=== PATIENT | female | born 1945 | race Caucasian/White ===

== ENCOUNTER 2017-06-03 13:34 | Emergency (ER) | payer MEDICARE, OTHER ==
[2017-06-03 13:52] VITALS: BP 183/104
--- NOTE | 2017-06-03 14:54 | XRAY Preliminary Report ---
Exam: XR KNEE 4 VIEW LT IMPRESSION: Soft tissue swelling anteriorly without underlying fracture or dislocation. [facility] SITE ID: [id number]
--- NOTE | 2017-06-03 14:57 | XRAY Report ---
EXAM: LEFT KNEE RADIOGRAPHY EXAM DATE: 06/03/2017 02:09 PM. CLINICAL HISTORY: Fall/pain . COMPARISON: None. TECHNIQUE: 4 views. FINDINGS: Bones: Normal. No fractures or bone lesions. Joints: Normal. No effusion. No subluxations. Soft Tissues: Soft tissue swelling anteriorly at the knee. IMPRESSION: Soft tissue swelling anteriorly without underlying fracture or dislocation. [facility] Referring Provider Line: [phone] SITE ID: [id number]
--- NOTE | 2017-06-03 14:57 | XRAY Preliminary Report ---
Exam: XR WRIST 4 VIEW RT IMPRESSION: No acute fracture or dislocation. [facility] SITE ID: [id number]
--- NOTE | 2017-06-03 14:59 | XRAY Report ---
EXAM: RIGHT WRIST RADIOGRAPHY EXAM DATE: 06/03/2017 02:09 PM. CLINICAL HISTORY: Fall/pain . COMPARISON: None. TECHNIQUE: 3 views. FINDINGS: Bones: No acute fracture or dislocation. Chronic appearing deformity of the fifth metacarpal, possibl y from remote prior injury. Joints: Degenerative changes at the basal joint of the thumb. Soft Tissues: Normal. No soft tissue swelling. IMPRESSION: No acute fracture or dislocation. [facility] Referring Provider Line: [phone] SITE ID: [id number]
--- NOTE | 2017-06-03 15:39 | ED Physician Documentation ---
History of Present Illness - Stated complaint Stated Complaint: RT WRIST PX - Chief complaint Chief Complaint: Ext Problem - History obtained from History obtained from: Patient (pt is here for evaluation of right wrist pain and left knee pain. she states that for the past several days she has had pain in her right wrist with movement. no trauma, no change in skin. she states that she works with her hands and is concerned about carpel tunnel) Review of Systems Constitutional: denies: Fever, Chills Cardiac: denies: Chest pain / pressure, Palpitations Respiratory: denies: Dyspnea, Cough GI: denies: Abdominal Pain, Nausea, Vomiting, Constipation, Diarrhea : denies: Dysuria Skin: denies: Rash, Lesions Musculoskeletal: reports: Extremity pain (right wrist, left knee), Joint pain ( right wrist), Extremity swelling (left knee), Joint swelling (left knee). denies: Neck pain, Back pain PD PAST MEDICAL HISTORY - Past Medical History Past Medical History: No - Past Surgical History Past Surgical History: Yes HEENT: Cataracts - Present Medications Home Medications: Ambulatory Orders Medication Instructions Recorded Confirmed No Known Home Medications [No 06/03/17 06/03/17 Known Home Medications] - Allergies Allergies/Adverse Reactions: Allergies Allergy/AdvReac Type Severity Reaction Status Date / Time Penicillins Allergy Unknown Verified 06/03/17 13:44 - Social History Does the pt smoke?: No Smoking Status: Never smoker Does the pt drink ETOH?: Yes Does the pt have substance abuse?: Yes Substance Use and Type: Marijuana - Immunizations Immunizations are current?: No PD ED PE NORMAL - Vitals Vital signs reviewed: Yes - General General: Alert and oriented X 3, No acute distress, Well developed/nourished - HEENT HEENT: Atraumatic, Moist mucous membranes - Cardiac Cardiac: RRR, No murmur, Strong equal pulses (radial ) - Respiratory Respiratory: No respiratory distress - Derm Derm: Normal color, Warm and dry, No rash - Extremities Extremities: No deformity, Other (pt with left knee pre=patella effusion, pt with TTP over the palmar aspect of the right thumb, no snuff box tendernss neg tinel's sign, ) - Neuro Neuro: Alert and oriented X 3, Other (sensation intact to light touch to right UE) - Psych Psych: Normal mood, Normal affect Results - Vitals Vitals: Vital Signs - 24 hr 06/03/17 13:39 Temperature 36.5 C Heart Rate 84 Respiratory 18 Rate Blood Pressure 183/104 H O2 Saturation 100 Oxygen O2 Source Room air - Rads (name of study) right wrist Radiology: Final report received left knee Radiology: Final report received PD MEDICAL DECISION MAKING - ED course Complexity details: d/w patient ED course: pt is N/V intact in the right upper and left lower extremity. No cute findings on the x-rays. pt has a wrist brace suspect tendonitis of the wrist and left knee effusion from the fall. no need for casting. BARTOLO discussed with pt. Departure - Departure Disposition: 01 Home, Self Care Clinical Impression: Right wrist tendonitis, Effusion, left knee Condition: Good Instructions: Wrist Pronation Strength, ED BARTOLO Follow-Up: Abdi Hagen MD [Primary Care Provider] - Comments: use the wrist brace like we discussed. You can take the Motrin like we discussed. Return to the ER for any new or worsening symptoms.
== END 2017-06-03 15:50 | disposition home or self-care (01) ==
LOC: ED 13:34
DX: M77.9 Enthesopathy, unspecified (principal); M25.462 Effusion, left knee
CPT/HCPCS: 99283

== ENCOUNTER 2020-02-28 08:22 | Outpatient (CLI) | payer OTHER, MEDICARE ==
--- NOTE | 2020-03-01 09:44 | MRI Report ---
PROCEDURE: Shoulder RT W/O INDICATIONS: RT ROTATOR CUFF TEAR TECHNIQUE: Noncontrast oblique coronal T2 fast spin echo with fat saturation, oblique sagittal T1 spin echo and T2 fast spin echo with fat saturation, axial T1 spin echo and T2 fast spin echo with fat saturation t hrough the shoulder. COMPARISON: Right shoulder radiographs dated 06/24/2019. FINDINGS: Image quality: Mildly compromised by patient motion on multiple sequences despite repeat sequences be ing obtained. Diagnostic information is obtained. Rotator cuff: There is full-thickness tearing of the supraspinatus tendon and the anterior fibers of the infraspinatus tendon from their distal insertions measuring approximately 1.8 cm in anterior pos terior dimension with approximately 3.6 cm of proximal tendon retraction. There is mild atrophy and g rade 2 fatty infiltration of the supraspinatus and infraspinatus muscles. The teres minor tendon is i ntact. The subscapularis tendon demonstrates moderate tendinosis and moderate grade intrasubstance te aring at the distal insertion. There is grade 2 fatty infiltration of the superior subscapularis musc le. Bones and bursae: Mild chronic traction cystic changes are seen at the posterior superior humeral hea d. High-grade cartilage loss is seen in the central to inferior glenoid with mild spurring of the gle noid rim. There is mild acromioclavicular joint osteoarthrosis. Capsule and soft tissues: There is a large glenohumeral joint effusion communicates with the subacro mial/subdeltoid bursa with marked synovial hypertrophy. Numerous hypointense intra-articular bodies a re most likely rice bodies associated with chronic synovitis rather than chondromatosis. There is diffuse degeneration of the glenoid labrum. There is complete tearing of the biceps long head tendon with distal retraction to the level of the d istal bicipital groove. Axillary and supraclavicular lymph nodes are increased in size and number. The largest measures up to 14 mm in short axis diameter. IMPRESSION: 1. Full-thickness tearing of the supraspinatus tendon and the anterior portion of the infraspinatus tendon at their distal insertions with proximal tendon retraction measuring approximately 3.6 cm. The re is mild atrophy and grade 2 fatty infiltration of the supraspinatus and infraspinatus muscles. 2. Moderate subscapularis tendinosis with superimposed moderate-grade intrasubstance tearing at the superior insertion. There is grade 2 fatty infiltration of the subscapularis muscle. 3. Complete tearing and distal retraction of the biceps long head tendon. 4. Circumferential labral degeneration. 5. Large glenohumeral effusion communicates with the subacromial/subdeltoid bursa with synovial hype rtrophy. Numerous intra-articular bodies most likely represent rice bodies related to chronic synovit is rather than primary chondromatosis. Possible causes of synovial hypertrophy include osteoarthrosis as well as chronic inflammatory processes such as rheumatoid arthritis or a chronic indolent infecti on such as with tuberculosis or coccidiomycosis. Correlation with clinical findings and serologies is recommended. 6. Right axillary and supraclavicular lymph nodes are increased in size and number measuring up to 1 4 mm in short axis diameter. These are nonspecific, and the differential includes reactive and metast atic lymphadenopathy. Correlation with most recent mammogram is recommended to exclude a breast malig lolly as a cause for adenopathy. Reviewed by: Carson Lopez MD on 03/01/2020 9:43 AM PDT Approved by: Carson Lopez MD on 03/01/2020 9:43 AM PDT Station ID: [id number]
== END 2020-02-28 08:23 | disposition home or self-care (01) ==
LOC: DI 08:22
PROVIDERS: ATTEND Orthopaedic Surgery
DX: M75.101 Unspecified rotator cuff tear or rupture of right shoulder, not specified as traumatic (principal); M62.511 Muscle wasting and atrophy, not elsewhere classified, right shoulder; S46.111A Strain of muscle, fascia and tendon of long head of biceps, right arm, initial encounter; M75.81 Other shoulder lesions, right shoulder; M25.411 Effusion, right shoulder; R59.0 Localized enlarged lymph nodes

== ENCOUNTER 2020-05-07 11:12 | Outpatient (CLI) | payer MEDICARE, OTHER ==
--- NOTE | 2020-05-10 16:38 | Mammography Report ---
BILATERAL DIGITAL DIAGNOSTIC MAMMOGRAM 3D/2D: 05/07/2020 CLINICAL: Patient returns for additional imaging over a suspected mass in the right breast. Comparison is made to exam dated: 02/28/2020 breast MRI - [facility]. The tissue o f both breasts is heterogeneously dense. This may lower the sensitivity of mammography. There are multiple oval equal density lymph nodes with circumscribed margins in the right axillary ta il. No other significant masses, calcifications, or other findings are seen in either breast. IMPRESSION: INCOMPLETE: NEEDS ADDITIONAL IMAGING EVALUATION The multiple oval equal density lymph nodes are indeterminate. An ultrasound is recommended. This exam was interpreted at Station ID: [id number]. NOTE: For mammograms, a report in lay terms will be sent to the patient. Approximately 15% of breast malignancies will not be visualized mammographically. In the management of a palpable breast mass, a negative mammogram must not discourage biopsy of a clinically suspicious lesion. Electronically Signed By: Xavier Armando M.D. ddp/:05/07/2020 17:37:32 ACR BI-RADS Category 0: Incomplete 3340F PARENCHYMAL PATTERN: (D) - The breast(s) demonstrate(s) heterogeneously dense fibroglandular parenchy ma. BI-RADS CATEGORY: (0) - 0 Ultrasound [id number] Immediate follow-up LATERALITY: (B)
--- NOTE | 2020-05-10 16:38 | Ultrasound Report ---
LIMITED ULTRASOUND OF RIGHT BREAST: 05/07/2020 CLINICAL: Right axilla enlarged lymph node. Comparison is made to exams dated: 05/07/2020 mammogram and 02/28/2020 breast MRI - [facility]. Color flow and real-time ultrasound of the right breast were performed on the areas of interest. There is a 1.9 cm x 1.2 cm x 1.8 cm lymph node in the right axilla. This lymph node is hypoechoic wi th effacement of the fatty hilum. This correlates with prior shoulder MRI findings. Color flow imag ing demonstrates that there is increased vascularity. Another similar enlarged axillary lymph node m easures up to 1.8 x 0.7 x 1.6 cm. IMPRESSION: SUSPICIOUS OF MALIGNANCY The 1.9 cm x 1.2 cm x 1.8 cm lymph node is suspicious of malignancy. An ultrasound guided biopsy is recommended. The findings were discussed with and the results were reviewed with the patient at the conclusion of the study by Dr. Parker. This exam was interpreted at Station ID: [id number]. Electronically Signed By: Xavier Armando M.D. ddp/:05/07/2020 15:02:43 Ultrasound BI-RADS: 4 Suspicious for malignancy BI-RADS CATEGORY: (4) - 4 None [id number] Immediate follow-up LATERALITY: ()
== END 2020-05-07 11:13 | disposition home or self-care (01) ==
LOC: DI 11:12
PROVIDERS: ATTEND Nurse Practitioner
DX: R59.0 Localized enlarged lymph nodes (principal)
CPT/HCPCS: 76642; 77066

== ENCOUNTER 2020-06-04 11:09 | Outpatient (CLI) | payer MEDICARE, OTHER ==
[~2020-06-04 11:09] MED LIST: BUFFERED LIDOCAINE 10 ML SYRINGE ONE
[2020-06-04] MEDS ORDERED: BUFFERED LIDOCAINE 10 ML SYRINGE ONE (11:21)
[2020-06-04] MEDS ORDERED: BUFFERED LIDOCAINE 10 ML SYRINGE IU ONE (13:21)
--- NOTE | 2020-06-07 08:29 | Mammography Report ---
UNILATERAL RIGHT DIGITAL DIAGNOSTIC MAMMOGRAM 3D/2D: 06/04/2020 CLINICAL: Right axillary node biopsy. Comparison is made to exam dated: 06/04/2020 ultrasound biopsy - [facility]. The tissue of right breast is heterogeneously dense. This may lower the sensitivity of mammography. There is a marker clip in the appropriate position in the right breast posterior depth superior regio n seen on the mediolateral oblique view only. This marker clip placement is at the biopsy site. IMPRESSION: POST PROCEDURE MAMMOGRAM FOR MARKER PLACEMENT There was a successful marker clip placement in the right breast posterior depth superior region seen on the mediolateral oblique view only. This exam was interpreted at Station ID: [id number]. NOTE: For mammograms, a report in lay terms will be sent to the patient. Approximately 15% of breast malignancies will not be visualized mammographically. In the management of a palpable breast mass, a negative mammogram must not discourage biopsy of a clinically suspicious lesion. Electronically Signed By: Javier capps/penrad:06/07/2020 08:24:32 ACR BI-RADS Category Post-procedure mammogram for marker placement PARENCHYMAL PATTERN: (D) - The breast(s) demonstrate(s) heterogeneously dense fibroglandular hazel cooley. BI-RADS CATEGORY: () - RECOMMENDATION: (ADDMAM) - Recommend additional mammographic views. recall n/a LATERALITY: (B)
--- NOTE | 2020-06-10 07:25 | Ultrasound Report ---
ULTRASOUND GUIDED BIOPSY RIGHT BREAST USING VACUUM DEVICE WITH MARKING DEVICE INSERTED AND POST DIGIT AL MAMMOGRAPHIC IMAGIN06/04/2020 CLINICAL: Right axillary node biopsy. PATIENT CONSENT: Risks (minor bleeding, infection, vasovagal reaction and repeat procedure), benefits and alternatives were explained to the patient and written informed consent was obtained. Correlation is made to exams dated: 05/07/2020 ultrasound, 02/28/2020 breast MRI, and 05/07/2020 mamm ogram - [facility]. An ultrasound guided biopsy using real-time ultrasound was performed for the 1.7 cm solid mass locate d in the right axillary tail. The skin was prepped in the usual manner. The abnormality was approac hed from the lateral aspect. A biopsy needle was placed adjacent to the abnormality under ultrasound guidance. Once the needle was documented to be in the correct location, four specimens were obtaine d using the Mammotome biopsy system. A clip was inserted into the biopsy cavity. Post procedure dig ital mammographic imaging was obtained. The specimens were sent to the laboratory for pathological a nalysis. IMPRESSION: ULTRASOUND GUIDED BIOPSY BENIGN Ultrasound guided biopsy of the 1.7 cm solid mass in the right axillary tail was successful with no a pparent post procedure complications. Pathology indicates benign reactive lymph node. Pathology res ults are concordant with imaging findings. Return to annual mammogram screening schedule is recommended. This exam was interpreted at Station ID: [id number]. Javier capps,aty/:06/09/2020 17:49:37 BI-RADS CATEGORY: () - RECOMMENDATION: (ANNUAL) - Recommend routine annual screening mammography. [id number] return to screening LATERALITY: (B)
== END 2020-06-04 11:10 | disposition home or self-care (01) ==
LOC: DI 11:09
PROVIDERS: ATTEND Nurse Practitioner
DX: R59.0 Localized enlarged lymph nodes (principal)
CPT/HCPCS: 19083

== ENCOUNTER 2021-01-26 14:17 | Outpatient (CLI) | payer MEDICARE, OTHER ==
--- NOTE | 2021-01-26 15:10 | XRAY Report ---
PROCEDURE: Hand 3 View BILAT INDICATIONS: ARTHRITIS, BILATERAL HANDS TECHNIQUE: 3 views of the bilateral hand(s) acquired. COMPARISON: None FINDINGS: Bones: No fractures or dislocations. No suspicious bony lesions. There is a moderate degree of deg enerative osteoarthritic change at the distal inner phalangeal joints, without inflammatory/erosive a rthritis identified. The most prominent degree of degenerative changes seen at the distal second inte rphalangeal joint bilaterally. Soft tissues: No suspicious soft tissue calcifications. 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 Reviewed by: Elfego Parker MD on 01/26/2021 3:09 PM PDT Approved by: Elfego Parker MD on 01/26/2021 3:09 PM PDT Station ID: [id number]
== END 2021-01-26 14:18 | disposition home or self-care (01) ==
LOC: DI.N 14:17
PROVIDERS: ATTEND Family Medicine
DX: M19.042 Primary osteoarthritis, left hand (principal); M19.041 Primary osteoarthritis, right hand

== ENCOUNTER 2021-01-30 12:57 | Emergency (ER) | payer MEDICARE, OTHER ==
[2021-01-30 13:46] LABS: BASOPHILS # (AUTO) 0.1 10^3/uL (0.0-0.1); BASOPHILS % (AUTO) 0.4 %; EOSINOPHILS % (AUTO) 0.1 %; HCT - HEMATOCRIT 40.4 % (37.0-47.0); HGB - HEMOGLOBIN 12.8 g/dL (12.0-16.0); LYMPHOCYTES % (AUTO) 7.3 %; MEAN CORPUSCULAR HEMOGLOBIN 29.2 pg (27.0-31.0); MEAN CORPUSCULAR HGB CONC 31.7 g/dL (32.0-36.0); MEAN PLATELET VOLUME 9.7 fL (7.9-10.8); MONOCYTES % (AUTO) 7.1 %; NEUTROPHILS # (AUTO) 11.6 10^3/uL (1.5-6.6); NEUTROPHILS % (AUTO) 84.4 %; PLT - PLATELET COUNT 252 10^3/uL (130-450); RED BLOOD COUNT 4.39 10^6/uL (4.20-5.40); WHITE BLOOD COUNT 13.8 x10^3/uL (4.8-10.8)
[2021-01-30 13:58] LABS: ALBUMIN 3.7 g/dL (3.2-5.5); ALBUMIN/GLOBULIN RATIO 0.9 (1.0-2.2); BILIRUBIN,TOTAL 0.9 mg/dL (0.2-1.0); CALCIUM 9.1 mg/dL (8.5-10.3); CREATININE 0.8 mg/dL (0.4-1.0); POTASSIUM 3.6 mmol/L (3.5-5.0); TOTAL PROTEIN 7.9 g/dL (6.7-8.2)
[2021-01-30] MEDS ORDERED: ONDANSETRON 4 MG/2 ML VIAL IVP STA (14:07)
[2021-01-30] MEDS ORDERED: HYDROmorphone 1 MG/ML CARPUJECT IVP STA (14:07)
--- NOTE | 2021-01-30 14:10 | ED Physician Documentation ---
History of Present Illness - Stated complaint Stated Complaint: LT SIDE PX - Chief complaint Chief Complaint: Abd Pain - History obtained from History obtained from: Patient - History of Present Illness Timing: How many days ago (2) Pain level max: 10 Pain level now: 10 - Additonal information Additional information: Patient is a 75-year-old female who states that she developed left upper quadrant pain yesterday and has continually worsened. States now she cannot lay down. No fevers. No chills. She states that she normally drinks alcohol 2 glasses of wine per night and uses marijuana several times a day, mostly CBD capsules. No vomiting. No diarrhea. No constipation. Worse with any sort of movement and eating. Nothing makes it better Review of Systems Ten Systems: 10 systems reviewed and negative Constitutional: denies: Fever, Chills Respiratory: denies: Cough GI: denies: Vomiting, Diarrhea Skin: denies: Rash Musculoskeletal: denies: Neck pain, Back pain Neurologic: denies: Headache PD PAST MEDICAL HISTORY - Past Medical History Past Medical History: Yes Musculoskeletal: Other ("arthritis") - Past Surgical History Past Surgical History: Yes HEENT: Cataracts - Present Medications Home Medications: Ambulatory Orders Medication Instructions Recorded Confirmed Azithromycin [Zithromax] 250 mg PO DAILY #4 tablet 01/30/21 Cefdinir 300 mg PO BID #20 cap 01/30/21 Ondansetron Odt [Zofran] 4 mg TL Q6H PRN #10 tablet 01/30/21 Oxycodone HCl/Acetaminophen 1 - 2 each PO Q6H PRN #14 tablet 01/30/21 [Percocet 5-325 mg Tablet] - Allergies Allergies/Adverse Reactions: Allergies Allergy/AdvReac Type Severity Reaction Status Date / Time Penicillins Allergy Unknown Verified 01/30/21 13:18 - Social History Does the pt smoke?: No Smoking Status: Never smoker Does the pt drink ETOH?: Yes Does the pt have substance abuse?: Yes - Immunizations Immunizations are current?: No PD ED PE NORMAL - Vitals Vital signs reviewed: Yes - General General: Alert and oriented X 3, No acute distress - HEENT HEENT: Moist mucous membranes - Neck Neck: Supple, no meningeal sign - Cardiac Cardiac: RRR - Respiratory Respiratory: No respiratory distress, Clear bilaterally - Abdomen Abdomen: Other (Diffusely tender to palpation. Peritoneal signs present in the upper abdomen, especially left upper quadrant.) - Back Back: No CVA TTP, No spinal TTP - Derm Derm: Warm and dry - Extremities Extremities: No edema, No calf tenderness / cord - Neuro Neuro: Alert and oriented X 3 Results - Vitals Vitals: Vital Signs - 24 hr 01/30/21 01/30/21 13:15 15:18 Temperature 36.9 C Heart Rate 108 H 107 H Respiratory 18 19 Rate Blood Pressure 170/87 H 160/92 H O2 Saturation 97 95 Oxygen O2 Source Room air - Labs Labs: Laboratory Tests 01/30/21 01/30/21 01/30/21 13:40 13:40 15:24 WBC 13.8 H RBC 4.39 Hgb 12.8 Hct 40.4 MCV 92.0 MCH 29.2 MCHC 31.7 L RDW 13.0 Plt Count 252 MPV 9.7 Neut # (Auto) 11.6 H Lymph # (Auto) 1.0 L [place] # (Auto) 1.0 Eos # (Auto) 0.0 Baso # (Auto) 0.1 Absolute Nucleated RBC 0.00 Nucleated RBC % 0.0 Sodium 138 Potassium 3.6 Chloride 102 Carbon Dioxide 25 Anion Gap 11.0 BUN 16 Creatinine 0.8 Estimated GFR (MDRD) 70 L Glucose 105 H Calcium 9.1 Total Bilirubin 0.9 AST 90 H ALT 112 H Alkaline Phosphatase 136 H Total Protein 7.9 Albumin 3.7 Globulin 4.2 Albumin/Globulin Ratio 0.9 L Lipase 20 L Urine Color DARK YELLOW Urine Clarity HAZY Urine pH 5.5 Ur Specific [place] 1.020 Urine Protein 30 H Urine Glucose (UA) NEGATIVE Urine Ketones 40 H Urine Occult Blood SMALL H Urine Nitrite NEGATIVE Urine Bilirubin NEGATIVE Urine Urobilinogen 1 (NORMAL) Ur Leukocyte Esterase NEGATIVE Urine RBC 0-5 Urine WBC 0-3 Ur Squamous Epith Cells FEW Squamous Urine Bacteria Few Ur Microscopic Review INDICATED Urine Culture Comments NOT INDICATED - Rads (name of study) abd/pelvis CT Radiology: Prelim report reviewed, EMP read contemporaneously, See rad report (Left lower lobe consolidation, appearance most consistent with infiltrate, infectious. Differential would include superimposed neoplasm in a patient of this age. Follow-up chest CT in approximately 6 weeks to assure clearing.) Chest x-ray Radiology: Prelim report reviewed, EMP read contemporaneously, See rad report (Focal opacity seen at the left lung base, which is attributed to pleural effusion with infiltrate. This is better seen on the CT study performed earlier in the day. Chest CT follow-up is recommended to ensure resolution. ) PD MEDICAL DECISION MAKING - ED course Complexity details: reviewed results, re-evaluated patient, considered differential, d/w patient ED course: 75-year-old female with left upper quadrant abdominal pain. Likely secondary to pleural effusion from pneumonia. Treated with antibiotics. Patient is well- appearing, nontoxic. Afebrile. No hypoxia or respiratory distress. Pain well controlled. Will place on pain medication for home as well. She will follow up with her doctor for repeat CT in approximately 6 weeks. Patient counseled regarding signs and symptoms for which I believe and urgent re-evaluation would be necessary. Patient with good understanding of and agreement to plan and is comfortable going home at this time This document was made in part using voice recognition software. While efforts are made to proofread this document, sound alike and grammatical errors may occur. Departure - Departure Disposition: Home, Self Care Clinical Impression: Pneumonia Qualifiers: Pneumonia type: due to unspecified organism Laterality: left Lung location: lower lobe of lung Qualified Code(s): J18.9 - Pneumonia, unspecified organism Condition: Good Instructions: ED Pneumonia Adult Follow-Up: Ronald Oseguera DO [Primary Care Provider] - Within 1 week Prescriptions: Cefdinir 300 mg PO BID #20 cap Oxycodone HCl/Acetaminophen [Percocet 5-325 mg Tablet] 1 - 2 each PO Q6H PRN #14 tablet PRN Reason: pain Azithromycin [Zithromax] 250 mg PO DAILY #4 tablet Ondansetron Odt [Zofran] 4 mg TL Q6H PRN #10 tablet PRN Reason: Nausea / Vomiting Comments: Take all antibiotics until gone. Follow-up with your doctor for further care. You will need a repeat CT scan of your chest once the infection has cleared. This can be ordered by your doctor. I am prescribing a short course of narcotic pain medication for you. These are potentially dangerous and addictive medications that should be used carefully. These medications may constipate you. Take an foai-jfq-eafxoeo stool softener (docusate) twice daily with plenty of water while taking these medications. If you go 24 hours without a bowel movement, take vscg-ene-isdeidi miralax, per package instructions. Do not drink or drive while taking these medications. If you received narcotic or sedating medications while in the emergency department, do not drive for 24 hours. Store this medication in a safe, secure place and out of reach of children. It is a violation of federal law to give or sell this medication to another person or to use in a manner other than prescribed. The ED will not refill narcotic prescriptions, including prescriptions lost or stolen. To dispose of unwanted medications: 1. [facility] at [address] in [place] has a medication drop box. They accept prescription medications (in pill form) Sunday through Sunday 9:00 a.m. to 5:00 p.m. 2. The [facility] [employer] accepts prescription medications (in pill form only) for disposal year round. Call for more information. 3. Contact the [facility] for the next [facility] sponsored prescription drug collection event. , [phone], or [phone];
[2021-01-30] MEDS ORDERED: IOPAMIDOL-300 100 ML VIAL ONE (14:13)
[2021-01-30] MEDS ORDERED: IOPAMIDOL-300 100 ML VIAL IVP ONE (14:49)
--- NOTE | 2021-01-30 15:06 | CT Report ---
PROCEDURE: Abdomen/Pelvis W INDICATIONS: LUQ abd pain CONTRAST: IV CONTRAST: Isovue 300 ml: 100 PO CONTRAST: *NO PO CONTRAST TECHNIQUE: After the administration of IV contrast, 5 mm thick sections acquired from the diaphragms to the symp hysis. 5 mm thick coronal and sagittal reformats were acquired. For radiation dose reduction, the f ollowing was used: automated exposure control, adjustment of mA and/or kV according to patient size. COMPARISON: None. FINDINGS: Image quality: Excellent. ABDOMEN: Lung bases: Consolidative change can be seen within the left lower lobe, with overlying enhancing ate lectasis Heart size is normal. Solid organs: Liver and spleen are normal in size and enhancement. Gallbladder wall does not appear thickened. Biliary system is non dilated. Pancreas enhances normally. No adrenal nodules. Kidn eys demonstrate normal size and enhancement, without hydronephrosis. Peritoneum and bowel: Bowel loops demonstrate normal wall thickness and caliber. No free fluid or a ir. Diverticulosis can be seen, without newton findings of active diverticulitis. A normal appendix i s incidentally noted. Nodes and vessels: No retroperitoneal or mesenteric adenopathy by size criteria. Aorta and inferior vena cava are normal in size. Miscellaneous: A mild fat-containing periumbilical hernia is seen. PELVIS: Genitourinary: Bladder wall thickness is normal. Miscellaneous: No inguinal hernias or adenopathy. Bones: No suspicious bony lesions. No vertebral body compression fractures. Age-appropriate degene rative changes are seen. IMPRESSION: Left lower lobe consolidation, which may be the cause of the patient's left upper quadra nt abdominal pain. The appearance is most consistent with infectious infiltrate. However, differentia l diagnosis would include superimposed neoplasm in a patient of this age. Please consider a follow-up chest CT in approximately 6 weeks to assure clearing. The spleen and the splenic flexure of the colon are unremarkable. No left kidney hydronephrosis is seen. Incidental note is made of: Fat-containing periumbilical hernia Diverticulosis, without active diverticulitis Reviewed by: Elver Flor MD on 01/30/2021 2:05 PM [facility] Approved by: Elver Flor MD on 01/30/2021 2:05 PM [facility] Station ID: [id number]
[2021-01-30 15:39] LABS: GLUCOSE, URINE (UA) NEGATIVE (NEGATIVE); KETONES,URINE (UA) 40 mg/dL (NEGATIVE); LEUKOCYTE ESTERASE, URINE NEGATIVE (NEGATIVE); NITRITE,URINE NEGATIVE (NEGATIVE); OCCULT BLOOD,URINE SMALL (NEGATIVE); PH,URINE 5.5 PH (5.0-7.5); PROTEIN,URINE 30 mg/dL (NEGATIVE); UROBILINOGEN,URINE 1 (NORMAL) E.U./dL (NORMAL)
[2021-01-30 15:50] LABS: BILIRUBIN,URINE NEGATIVE (NEGATIVE); CLARITY,URINE HAZY (CLEAR); ICTOTEST,URINE NEGATIVE
[2021-01-30 15:55] LABS: BACTERIA,URINE Few /HPF (None Seen); RBC,URINE 0-5 /HPF (0-5); SQUAMOUS EPITHELIAL CELL,UR FEW Squamous (<= Few); WBC,URINE 0-3 /HPF (0-5)
--- NOTE | 2021-01-30 16:09 | XRAY Report ---
PROCEDURE: Chest 2 View X-Ray INDICATIONS: LLL infiltrate on CT TECHNIQUE: 2 view(s) of the chest. COMPARISON: Correlation is made with the CT of the abdomen and pelvis, 02/01/2021. FINDINGS: Surgical changes and devices: None. Lungs and pleura: Low lung volumes can be seen, causing a crowded appearance to the lung markings. T here is blunting of the left costophrenic angle, with poorly defined opacity seen at the left lung ba se. Mediastinum: The aorta is prominent and tortuous. The cardiac contours are within normal limits. Bones and chest wall: No suspicious bony abnormalities. Age-appropriate degenerative changes are see n. Soft tissues appear unremarkable. Excreting contrast can be seen within the right kidney. IMPRESSION: Focal opacity seen at the left lung base, which is attributed to pleural effusion with i nfiltrate. This is better seen on the CT study performed earlier in the day. Chest CT follow-up is recommended to ensure resolution. Reviewed by: Elver Flor MD on 01/30/2021 3:08 PM [facility] Approved by: Elver Flor MD on 01/30/2021 3:08 PM [facility] Station ID: [id number]
[2021-01-30] MEDS ORDERED: cefTRIAXone 1 GM VIAL IVP STA (16:15)
[2021-01-30] MEDS ORDERED: AZITHROMYCIN 250 MG TABLET PO STA (16:16)
[2021-01-30] MEDS ORDERED: oxyCODONE 5 MG TABLET PO STA (16:18)
[2021-01-30 16:35] VITALS: BP 148/79
== END 2021-01-30 16:33 | disposition home or self-care (01) ==
LOC: ED 12:57
DX: J18.9 Pneumonia, unspecified organism (principal); J90 Pleural effusion, not elsewhere classified
CPT/HCPCS: 36415; 71046; 74177; 80053; 81001; 83690; 85025; 96374; 96375; 99284; A9270; J1170; Q9967; 81003; 87086

== ENCOUNTER 2021-04-21 11:52 | Outpatient (CLI) | payer MEDICARE ==
[2021-04-21] MEDS ORDERED: IOVERSOL 320 100 ML VIAL IVP ONE ×2 (12:13→20:18)
--- NOTE | 2021-04-21 15:00 | CT Report ---
PROCEDURE: CHEST W INDICATIONS: LLL INFILTRATE CONTRAST: IV CONTRAST: Optiray 320 ml: 100 PO CONTRAST: *NO PO CONTRAST TECHNIQUE: After the administration of intravenous contrast, 1 mm axial images were acquired from the pulmonary apices through the posterior costophrenic angles. Axial 5 mm soft tissue kernel reconstructions were performed as well as 8 mm axial MIP and coronal and sagittal 5 mm reformations. For radiation dose reduction, the following was used: automated exposure control, adjustment of mA and/or kV according to patient size. COMPARISON: None. FINDINGS: CT CHEST: Thyroid: Homogeneous. Vasculature: The thoracic aorta and arch vasculature have a normal contrasted appearance and are norm al size and contour. No evidence for dissection. Heart: No cardiomegaly or significant pericardial effusion. Mediastinum: No pathologic lymph node enlargement by size criteria. Lung/pleura: Small left pleural effusion with adjacent atelectasis. The remaining lungs are well aera virgie. No pleural effusion. Tracheobronchial tree: Patent. Upper abdomen: No significant abnormality. Bones: No significant abnormality. Chest wall: Prominent lymph nodes in the left axilla, which may be reactive. IMPRESSION: 1.Small left pleural effusion with adjacent atelectasis. 2.Left axillary lymphadenopathy, which may be. Reviewed by: Roland Dobbins MD on 04/21/2021 2:59 PM PDT Approved by: Roland Dobbins MD on 04/21/2021 2:59 PM PDT Station ID: [id number]
== END 2021-04-21 11:53 | disposition home or self-care (01) ==
LOC: DI 11:52
PROVIDERS: ATTEND Family Medicine
DX: R91.8 Other nonspecific abnormal finding of lung field (principal); J90 Pleural effusion, not elsewhere classified; J98.11 Atelectasis; R59.0 Localized enlarged lymph nodes
CPT/HCPCS: 71260; Q9967

== ENCOUNTER 2022-01-30 12:59 | Outpatient (CLI) | payer MEDICARE ==
[2022-01-30 20:05] LABS: BASOPHILS # (AUTO) 0.1 10^3/uL (0.0-0.1); BASOPHILS % (AUTO) 1.3 %; EOSINOPHILS # (AUTO) 0.2 10^3/uL (0.0-0.7); EOSINOPHILS % (AUTO) 2.4 %; HCT - HEMATOCRIT 39.1 % (37.0-47.0); HGB - HEMOGLOBIN 12.4 g/dL (12.0-16.0); LYMPHOCYTES # (AUTO) 2.6 10^3/uL (1.5-3.5); LYMPHOCYTES % (AUTO) 32.9 %; MEAN CORPUSCULAR HEMOGLOBIN 29.6 pg (27.0-31.0); MEAN CORPUSCULAR HGB CONC 31.7 g/dL (32.0-36.0); MEAN CORPUSCULAR VOLUME 93.3 fL (81.0-99.0); MEAN PLATELET VOLUME 11.1 fL (7.9-10.8); MONOCYTES # (AUTO) 0.6 10^3/uL (0.0-1.0); MONOCYTES % (AUTO) 7.6 %; NEUTROPHILS # (AUTO) 4.4 10^3/uL (1.5-6.6); NEUTROPHILS % (AUTO) 55.5 %; PLT - PLATELET COUNT 368 10^3/uL (130-450); RED BLOOD COUNT 4.19 10^6/uL (4.20-5.40); RED CELL DISTRIBUTION WIDTH 14.4 % (12.0-15.0); WHITE BLOOD COUNT 7.9 x10^3/uL (4.8-10.8)
[2022-01-30 20:21] LABS: ALBUMIN 4.1 g/dL (3.2-5.5); ALBUMIN/GLOBULIN RATIO 1.2 (1.0-2.2); BILIRUBIN,TOTAL 0.7 mg/dL (0.2-1.0); CALCIUM 9.6 mg/dL (8.5-10.3); CREATININE 0.8 mg/dL (0.4-1.0); POTASSIUM 3.9 mmol/L (3.5-5.0); TOTAL PROTEIN 7.4 g/dL (6.7-8.2)
== END 2022-01-30 13:00 | disposition home or self-care (01) ==
LOC: LAB.N 12:59
PROVIDERS: ATTEND Physician Assistant
DX: Z00.00 Encounter for general adult medical examination without abnormal findings (principal); Z79.899 Other long term (current) drug therapy; R20.2 Paresthesia of skin
CPT/HCPCS: 36415; 80053; 85025

== ENCOUNTER 2022-02-01 12:45 | Outpatient (CLI) | payer MEDICARE ==
[2022-02-01 18:29] LABS: RHEUMATOID FACTOR NEGATIVE (Negative)
== END 2022-02-01 12:46 | disposition home or self-care (01) ==
LOC: LAB.N 12:45
PROVIDERS: ATTEND Family Medicine
DX: M13.841 Other specified arthritis, right hand (principal)
CPT/HCPCS: 36415; 86430

== ENCOUNTER 2022-02-01 12:48 | Outpatient (CLI) | payer MEDICARE ==
--- NOTE | 2022-02-01 15:49 | XRAY Report ---
PROCEDURE: Hand 3 View RT INDICATIONS: ARTHRITIS TECHNIQUE: 3 views of the hand(s) acquired. COMPARISON: Plain films dated 01/26/2021 FINDINGS: Bones: No fractures or dislocations. No suspicious bony lesions. There is mild joint space narrowi ng and periarticular osteophyte formation at the radiocarpal, scaphotrapezial, first carpometacarpal, as well as the interphalangeal joints of the digits, as before, indicating osteoarthritis. Soft tissues: No suspicious soft tissue calcifications. IMPRESSION: Osteoarthritis. No acute fracture. No osseous lesion. If symptoms and/or clinical suspicion for patho logy continue, further assessment with repeat plain films, or advanced imaging (e.g., CT, MRI, or bon e scan) is recommended for further assessment. Reviewed by: Dori Kilgore MD on 02/01/2022 3:48 PM PDT Approved by: Dori Kilgore MD on 02/01/2022 3:48 PM PDT Station ID: [id number]
--- NOTE | 2022-02-01 16:29 | XRAY Report ---
PROCEDURE: Wrist 3 View RT INDICATIONS: R WRIST PX TECHNIQUE: 3 views of the wrist were acquired. COMPARISON: 01/26/2021 plain films. FINDINGS: Bones: No fractures or dislocations. No suspicious bony lesions. Joint space narrowing and articul ar osteophyte formation at the radiocarpal, scaphotrapezial, and first metacarpal joints, indicating osteoarthritis. Prominent osteophyte at the first carpometacarpal joint interface, as before. Scaphoid view: Not requested Soft tissues: No suspicious soft tissue calcifications. IMPRESSION: Osteoarthritis. No acute fracture. No osseous lesion. If symptoms and/or clinical suspicion for patho logy continue, further assessment with repeat plain films, or advanced imaging (e.g., CT, MRI, or bon e scan) is recommended for further assessment. Reviewed by: Dori Kilgore MD on 02/01/2022 4:28 PM PDT Approved by: Dori Kilgore MD on 02/01/2022 4:28 PM PDT Station ID: [id number]
== END 2022-02-01 12:49 | disposition home or self-care (01) ==
LOC: DI.N 12:48
PROVIDERS: ATTEND Family Medicine
DX: M19.041 Primary osteoarthritis, right hand (principal); M19.031 Primary osteoarthritis, right wrist; M13.841 Other specified arthritis, right hand
CPT/HCPCS: 36415; 86430

== ENCOUNTER 2022-03-27 14:14 | Outpatient (CLI) | payer MEDICARE ==
--- NOTE | 2022-03-28 10:07 | Mammography Report ---
BILATERAL DIGITAL SCREENING MAMMOGRAM 3D/2D: 03/27/2022 CLINICAL: Routine screening. Comparison is made to exams dated: 06/04/2020 mammogram and 05/07/2020 mammogram - [facility]. Both breasts are heterogeneously dense, which may obscure small masses (category c / 51-75% glandula r tissue). There are benign calcifications in both breasts. There also is a biopsy clip in the right breast. No significant masses, calcifications, or other findings are seen in either breast. There has been no significant interval change. IMPRESSION: BENIGN There is no mammographic evidence of malignancy. A 1 year screening mammogram is recommended. Based on the Tyrer Cuzick model (a risk assessment model) the patients lifetime risk is 10.9% and he r 10 year risk is 10.9%. According to the ACR, ACS, and NCCN guidelines, an annual breast MRI exam al laina with mammogram is recommended if the patients lifetime risk is 20% or greater. This exam was interpreted at Station ID: [id number]. NOTE: For mammograms, a report in lay terms will be sent to the patient. Approximately 15% of breast malignancies will not be visualized mammographically. In the management of a palpable breast mass, a negative mammogram must not discourage biopsy of a clinically suspicious lesion. Electronically Signed By: Edwina brown/vlad:03/28/2022 09:04:47 ACR BI-RADS Category 2: Benign Finding(s) 3342F PARENCHYMAL PATTERN: (D) - The breast(s) demonstrate(s) heterogeneously dense fibroglandular hazel cooley. BI-RADS CATEGORY: (2) - 2 RECOMMENDATION: (ANNUAL) - Recommend routine annual screening mammography. [id number] 1 year screening LATERALITY: (B)
== END 2022-03-27 14:15 | disposition home or self-care (01) ==
LOC: DI 14:14
PROVIDERS: ATTEND Physician Assistant
DX: Z12.31 Encounter for screening mammogram for malignant neoplasm of breast (principal)

== ENCOUNTER 2022-03-27 14:16 | Outpatient (CLI) | payer MEDICARE ==
--- NOTE | 2022-03-27 16:16 | DEXA Report ---
PROCEDURE: Dexa Spine and/or Hip INDICATIONS: POST MENOPAUSAL TECHNIQUE: Dual energy x-ray absorptiometry (DXA) was performed on a NextDigest System. Regions measur ed are the AP Spine, femoral neck, and if needed forearm. COMPARISON: None. FINDINGS: Lumbar Spine: Bone Mineral Density 1.2 g/cm/cm,T score 0.5, normal bone density Left Hip: Bone Mineral Density 0.8 g/cm/cm,T score -1.6, osteopenia. Impression: 1. Normal lumbar spine bone density. 2. Left hip osteopenia. Patients with diagnosis of osteoporosis or osteopenia should have regular bone mineral density assess ment. For those eligible for Medicare, routine testing is allowed once every 2 years. Testing frequ ency can be increased for patients who have rapidly progressing disease or for those who are receivin g medical therapy to restore bone mass. Reviewed by: Dori Kilgore MD on 03/27/2022 4:15 PM PDT Approved by: Dori Kilgore MD on 03/27/2022 4:15 PM PDT Station ID: [id number]
== END 2022-03-27 14:17 | disposition home or self-care (01) ==
LOC: DI 14:16
PROVIDERS: ATTEND Physician Assistant
DX: Z13.820 Encounter for screening for osteoporosis (principal); M85.88 Other specified disorders of bone density and structure, other site

== ENCOUNTER 2023-06-05 14:04 | Outpatient (CLI) | payer MEDICARE | END 2023-06-05 14:05 | disposition critical access hospital (66) | LOC: EMS 14:04 | DX: S01.81XA Laceration without foreign body of other part of head, initial encounter (principal); R51.9 Headache, unspecified; W01.0XXA Fall on same level from slipping, tripping and stumbling without subsequent striking against object, initial encounter; Y92.480 Sidewalk as the place of occurrence of the external cause | CPT/HCPCS: A0425; A0429 ==

== ENCOUNTER 2023-06-05 14:20 | Emergency (ER) | payer MEDICARE ==
[2023-06-05] MEDS ORDERED: lidocaine 1% 20 ML MDV SUBQ ONE (15:03)
[2023-06-05] MEDS ORDERED: TETANUS/DIPHTHERIA/PERTUSSIS 0.5 ML SYRINGE IM ONE (15:03)
--- NOTE | 2023-06-05 15:05 | ED Physician Documentation ---
History of Present Illness - Stated complaint Stated Complaint: GLF - Chief complaint Chief Complaint: Trauma Hd/Nk - Additonal information Additional information: 78-year-old female presents emergency department for evaluation of facial trau ma. Reports that she was walking on some uneven concrete when she tripped and fell forward. She presents to the ED with a large laceration above her right eyebrow. No blood thinners. No loss of consciousness. EMS transported in a rigid cervical collar. Uncertain of last tetanus. Review of Systems Musculoskeletal: denies: Neck pain, Back pain, Extremity pain, Joint pain Neurologic: reports: Head injury. denies: Generalized weakness, Focal weakness, Numbness, Syncope, Seizure Psychiatric: reports: Reviewed and negative PD PAST MEDICAL HISTORY - Past Medical History Past Medical History: Yes Cardiovascular: None Respiratory: Pneumonia Neuro: None Endocrine/Autoimmune: None GI: None TRAVELING ENGINEER: None : None HEENT: None Psych: None Musculoskeletal: Other Derm: None - Past Surgical History Past Surgical History: Yes HEENT: Cataracts - Present Medications Home Medications: Ambulatory Orders Medication Instructions Recorded Confirmed HYDROcod/ACETAM 5/325 [[place] 5/325] 1 - 2 tablet PO Q6H PRN #14 tablet 02/09/22 - Allergies Allergies/Adverse Reactions: Allergies Allergy/AdvReac Type Severity Reaction Status Date / Time Penicillins Allergy Unknown Verified 06/05/23 14:25 - Social History Does the pt smoke?: No Smoking Status: Never smoker Does the pt drink ETOH?: Yes Does the pt have substance abuse?: Yes - Immunizations Immunizations are current?: No PD ED PE NORMAL - General General: Alert and oriented X 3, No acute distress, Well developed/nourished - HEENT HEENT: Moist mucous membranes. No: Atraumatic (3 cm oblique laceration above the right eyebrow. 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 Eye Opening: Spontaneous Motor: Obeys Commands Verbal: Oriented GCS Score: 15 Results - Vitals Vitals: Vital Signs - 24 hr 06/05/23 14:25 Temperature 36.5 C Heart Rate 88 Respiratory 16 Rate Blood Pressure 160/88 H O2 Saturation 97 Oxygen O2 Source Room air Procedures - Laceration (location) right forehead Length in cm: 3 Wound type: Linear, Into subcut fat Neurovascular status: Sensory intact, Motor intact Anesthesia: Lidocaine 1% Wound preparation: Chlorhexadine, Irrigated copiously NS Skin layer closure: Nylon, Interrupted, Size #-0 - enter number (4), Sutures - enter # (6) Other: Patient tolerated well, No complications, Neurovascular intact, Tetanus booster given PD Medical Decision Making - ED course Complexity details: reviewed results, re-evaluated patient, d/w patient ED course: patient here aftera mechanical ground-level fall on uneven concrete. Struck her head without loss of consciousness. No anticoagulation. Patient presented in a c-collar. I personally remove the collar at the bedside and patient was able to range her neck fully in all planes without any tenderness. Normal neurological exam without deficits. Was able to ambulate with ease. I recommended CT imaging of the head and neck but patient declined today in the ER. Her tetanus was updated. The forehead laceration was closed at the bedside. She is discharged home in stable condition. I discussed the usual routine and emergent return precautions for concerns of sudden severe headache, uncontrolled vomiting, strokelike symptoms or any concerns of infection. Departure - Departure Disposition: 01 Home, Self Care Clinical Impression: Fall from ground level Forehead laceration Qualifiers: Encounter type: initial encounter Qualified Code(s): S01.81XA - Laceration without foreign body of other part of head, initial encounter Condition: Stable Record reviewed to determine appropriate education?: Yes Instructions: ED Laceration All Follow-Up: Ronald Oseguera DO [Primary Care Provider] - Comments: Itzel galeano had a fall in which she struck her head on concrete. You did sustain a 3 cm laceration which was closed with 7 interrupted sutures. These should be removed in about 10 days time. In general you can shower normally starting tomorrow afternoon. Wash with warm soapy water pat dry and then apply antibiotic ointment such as bacitracin or triple antibiotic. You declined CT imaging of your head and neck today. If at any point you develop sudden severe headache, have strokelike symptoms such as slurred speech, sudden weakness in your arms or legs or, any vision changes please return immediately to the ER. If you have any concerns of infection within the wound such as redness, milky drainage fevers or worsening pain despite your usual pain medications then please return to the ER. Forms: PCP List
[2023-06-05 17:35] VITALS: BP 148/79; O2SAT 98
== END 2023-06-05 16:15 | disposition home or self-care (01) ==
LOC: EDUNIT# → ED 14:20
DX: S01.81XA Laceration without foreign body of other part of head, initial encounter (principal); W18.39XA Other fall on same level, initial encounter; Z23 Encounter for immunization
CPT/HCPCS: 12013; 90471; 99283